=== PATIENT | male | born 1960 | race Caucasian/White ===

== ENCOUNTER 2025-01-24 12:59 | Emergency (ER) | payer MEDICARE ==
[2025-01-24] MEDS ORDERED: Bacitracin 1 PK ONE (14:00)
[2025-01-24] MEDS ORDERED: Lidocaine 1% w/Epinephrine 1:200K 30 ML VIAL ONE (14:00)
== END 2025-01-24 15:15 | disposition home or self-care (01) ==
LOC: CSHERS 12:59
DX: S01.81XA Laceration without foreign body of other part of head, initial encounter (principal); Z86.73 Personal history of transient ischemic attack (TIA), and cerebral infarction without residual deficits; Z55.6 Problems related to health literacy; W18.2XXA Fall in (into) shower or empty bathtub, initial encounter
CPT/HCPCS: 12011; 70450; 72125; 99283